=== PATIENT | female | born 1995 | race African-American/Black ===

== ENCOUNTER 2020-01-07 03:54 | Emergency (ER) | payer OTHER ==
[~2020-01-07] VITALS: Ht 167.6 cm; Wt 41.0 kg
[2020-01-07 03:56] VITALS: BP 0/0
[2020-01-07] MEDS ORDERED: LORAZEPAM 2MG/ML CPJ IM STA (04:14)
[2020-01-07] MEDS ORDERED: HALOPERIDOL LACTATE 5MG/ML VIAL IM STA (04:14)
== END 2020-01-07 06:19 | disposition home or self-care (01) ==
LOC: ER 04:43
DX: F91.8 Other conduct disorders (principal); Y08.89XA Assault by other specified means, initial encounter; Y93.89 Activity, other specified; Y92.018 Other place in single-family (private) house as the place of occurrence of the external cause
CPT/HCPCS: 99283

== ENCOUNTER 2021-04-04 03:24 | Emergency (ER) | payer MEDICAID ==
[~2021-04-04] VITALS: Ht 172.7 cm; Wt 60.0 kg
[2021-04-04] MEDS ORDERED: OLANZAPINE 10 MG/VIAL IM ONE (03:45)
[2021-04-04 05:35] LABS: BASOPHILS % 0.3 % (0.0-2.0); EOSINOPHILS % 0.2 % (0.0-5.0); HEMOGLOBIN. 10.1 g/dL (12.0-16.0); MEAN CORPUSCULAR HEMOGLOBIN 22.8 pg (28.0-32.0); MEAN CORPUSCULAR VOLUME 70.1 fL (81.0-99.0); MEAN PLATELET VOLUME 7.4 fl (7.4-10.4); MONOCYTES % 9.6 % (2.0-8.0); NEUTROPHILS % 73.9 % (40.0-76.0); PLATELET 294 x1000/uL (130-400); RED BLOOD CELL COUNT 4.42 mill/uL (4.2-5.4); RED CELL DISTRIBUTION WIDTH 15.4 % (11.6-14.6)
[2021-04-04 05:53] LABS: CHLORIDE 111 mEq/L (98-107)
[2021-04-04 05:55] LABS: HCG SCREEN NEGATIVE
[2021-04-04 05:58] LABS: ETHANOL BLOOD < 10 mg/dL
[2021-04-04 08:10] VITALS: BP 123/77
== END 2021-04-04 08:12 | disposition home or self-care (01) ==
LOC: EDUNIT# 03:24 → EDBD 03:24 → ER 03:24
DX: F23 Brief psychotic disorder (principal); F16.10 Hallucinogen abuse, uncomplicated; Z78.1 Physical restraint status
CPT/HCPCS: 36415; 80053; 80307; 80320; 80329; 84703; 85025; 93005; 96372; 99285; J3490; G0480

== ENCOUNTER 2022-09-29 09:55 | Inpatient (IN) | payer MEDICAID ==
[~2022-09-29] VITALS: Ht 160 cm; Wt 59.0 kg
[2022-09-29] MEDS ORDERED: METHYLERGONOVINE MALEATE 0.2 MG/ML IM PRN ×2 (10:30→11:30)
[2022-09-29] MEDS ORDERED: LIDOCAINE HCL 1% 20ML VIAL (Pyxis) INJ INFIL SCH (10:30)
[2022-09-29] MEDS ORDERED: LACTATED RINGERS 1,000 ML IV SCH (10:30)
[2022-09-29] MEDS ORDERED: OXYTOCIN 30 UNITS/500ML NS PMX 500 ML IV SCH ×2 (10:45→11:30)
[2022-09-29] MEDS ORDERED: RHO(D) IMMUNE GLOBULIN 300 MCG/SYR IM PRN (11:30)
[2022-09-29] MEDS ORDERED: GLYCERIN/WITCH HAZEL LEAF MEDICATED PAD TOP PRN (11:30)
[2022-09-29] MEDS ORDERED: LANOLIN OINT 7GM TUBE TOP PRN (11:30)
[2022-09-29] MEDS ORDERED: IBUPROFEN 400MG TABLET PO PRN (11:30)
[2022-09-29] MEDS ORDERED: IBUPROFEN 800MG TABLET PO PRN (11:30)
[2022-09-29] MEDS ORDERED: HEMORRHOIDAL SUPP PR PRN (11:30)
[2022-09-29] MEDS ORDERED: ACETAMINOPHEN WITH CODEINE 300/30MG TABLET PO PRN (11:30)
[2022-09-29] MEDS ORDERED: DIPHENHYDRAMINE 25MG CAPSULE PO PRN (11:30)
[2022-09-29 12:00] VITALS: BP 128/74; PULSE 82; RESP 18; TEMP 98.5
[2022-09-29 12:52] LABS: CLARITY URINE CLOUDY (CLEAR); COLOR URINE YELLOW (YELLOW); GLUCOSE URINE NEGATIVE (NEGATIVE); KETONES URINE 2+ (NEGATIVE); LEUKOCYTE ESTERASE URINE 2+ (NEGATIVE); NITRITE URINE NEGATIVE (NEGATIVE); OCCULT BLOOD URINE TRACE (NEGATIVE); PH URINE 6.5 (4.5-8.0); PROTEIN URINE 1+ (NEGATIVE); SPECIFIC GRAVITY URINE 1.023 (1.005-1.030)
[2022-09-29 13:10] LABS: SQUAMOUS EPITHELIAL CELL URINE FEW /lpf (RARE/1+)
[2022-09-29 13:11] LABS: BACTERIA URINE 4+; YEAST URINE NONE SEEN
[2022-09-29 13:42] LABS: *AMPHETAMINES SCREEN URINE NEGATIVE (NEGATIVE); *BARBITURATES SCREEN URINE NEGATIVE (NEGATIVE); *BENZODIAZEPINES SCREEN URINE NEGATIVE (NEGATIVE); *COCAINE SCREEN URINE NEGATIVE (NEGATIVE); CANNABINOID URINE SCREEN NEGATIVE (NEGATIVE); ECSTASY MDMA SCREEN URINE NEGATIVE (NEGATIVE); METHADONE URINE SCREEN NEGATIVE (NEGATIVE); OPIATES URINE SCREEN NEGATIVE (NEGATIVE); PHENCYCLIDINE URINE SCREEN NEGATIVE (NEGATIVE)
[2022-09-29 14:00] VITALS: O2SAT 97
[2022-09-29 14:38] LABS: HEMATOCRIT. 33.1 % (36.0-48.0); HEMOGLOBIN. 10.8 g/dL (12.0-16.0); MEAN CORPUSCULAR HEMOGLOBIN 23.2 pg (28.0-32.0); MEAN CORPUSCULAR HGB CONC 32.6 g/dL (31.0-37.0); MEAN CORPUSCULAR VOLUME 71.2 fL (81.0-99.0); MEAN PLATELET VOLUME 7.4 fl (7.4-10.4); PLATELET 291 x1000/uL (130-400); RED BLOOD CELL COUNT 4.65 mill/uL (4.2-5.4); RED CELL DISTRIBUTION WIDTH 15.3 % (11.6-14.6); WHITE BLOOD COUNT 23.8 x1000/uL (4.5-11.0)
[2022-09-29 14:47] LABS: DIFFERENTIAL COMMENT 1
[2022-09-29 14:49] LABS: PARTIAL THROMBOPLASTIN TIME 26.9 sec (23.4-31.0); PROTHROMBIN TIME 10.3 sec (9.6-11.0)
[2022-09-29 14:59] LABS: RAPID HIV SCREEN NEGATIVE (NEGATIVE)
[2022-09-29 15:49] LABS: HEPATITIS B SURFACE ANTIGEN NEGATIVE; RUBELLA IGG 54.7 IU/mL (4.99-10)
[2022-09-29 17:24] LABS: ANISOCYTOSIS 1+; MICROCYTOSIS 2+; PLATELET ESTIMATE NORMAL
[2022-09-29 20:00] VITALS: BP 102/51; PULSE 74; RESP 18; TEMP 99.1; O2SAT 96
[2022-09-29] MEDS ORDERED: DOCUSATE SODIUM 100MG CAPSULE PO SCH (21:00)
[2022-09-30 04:00] VITALS: BP 98/50; PULSE 62; RESP 18; TEMP 98.4
[2022-09-30] MEDS: FERROUS SULFATE 325MG TABLET PO SCH ×3 (07:30→17:20)
[2022-09-30 08:00] VITALS: BP 104/46; PULSE 68; RESP 18; TEMP 99.6; O2SAT 99
[2022-09-30] MEDS: PRENATAL VIT/FE FUMARATE/FA TABLET PO SCH (09:00)
[2022-09-30 12:40] LABS: BASOPHILS % 0.2 % (0.0-2.0); DIFFERENTIAL COMMENT 0; EOSINOPHILS % 0.5 % (0.0-5.0); HEMOGLOBIN. 8.9 g/dL (12.0-16.0); LYMPHOCYTES % 15.7 % (20.0-50.0); MEAN CORPUSCULAR HEMOGLOBIN 22.5 pg (28.0-32.0); MEAN CORPUSCULAR HGB CONC 30.8 g/dL (31.0-37.0); MEAN CORPUSCULAR VOLUME 73.1 fL (81.0-99.0); MEAN PLATELET VOLUME 8.2 fl (7.4-10.4); MONOCYTES % 11.9 % (2.0-8.0); NEUTROPHILS % 71.7 % (40.0-76.0); PLATELET 257 x1000/uL (130-400); RED BLOOD CELL COUNT 3.97 mill/uL (4.2-5.4); RED CELL DISTRIBUTION WIDTH 15.1 % (11.6-14.6); WHITE BLOOD COUNT 12.5 x1000/uL (4.5-11.0)
[2022-09-30 16:00] VITALS: BP 120/47; PULSE 62; RESP 18; TEMP 98.5
[2022-09-30 20:15] VITALS: BP 102/47; PULSE 70; RESP 18; TEMP 98.4; O2SAT 97
[2022-10-01 03:30] VITALS: BP 97/59; PULSE 77; RESP 18; TEMP 98.7
[2022-10-01 08:00] VITALS: BP 111/67; PULSE 77; RESP 18; TEMP 98.1; O2SAT 98
[2022-10-01] MEDS ORDERED: FERR-63 PO (08:54)
[2022-10-01] MEDS ORDERED: IBUP-2030 PO (08:54)
[2022-10-01] MEDS ORDERED: MULT-1116 MT (08:54)
[2022-10-01] MEDS: FERROUS SULFATE 325MG TABLET PO SCH (08:59)
[2022-10-01] MEDS: PRENATAL VIT/FE FUMARATE/FA TABLET PO SCH (08:59)
== END 2022-10-01 12:30 | disposition home or self-care (01) | DRG 560 ==
LOC: OBSVTOIN 09:55 → 8 EST LDRP 09:55 → 8EST 15:00
PROVIDERS: ADMIT Obstetrics & Gynecology; ATTEND Obstetrics & Gynecology
PROC: 10E0XZZ Delivery of Products of Conception, External Approach (ICD-10-PCS; principal; 2022-09-29)
PROC: 3E0234Z Introduction of Serum, Toxoid and Vaccine into Muscle, Percutaneous Approach (ICD-10-PCS; 2022-09-30)
DX: O26.893 Other specified pregnancy related conditions, third trimester (principal); Z37.0 Single live birth; O99.824 Streptococcus B carrier state complicating childbirth; Z53.29 Procedure and treatment not carried out because of patient's decision for other reasons; O99.03 Anemia complicating the puerperium; Z3A.38 38 weeks gestation of pregnancy; Z67.21 Type B blood, Rh negative
CPT/HCPCS: 36415; 80305; 81003; 85025; 86592; 86703; 86762; 86850; 86886; 86900; 87340; 90384; 99281; G0378; A4315; J2590; J2791